=== PATIENT | female | born 1995 | race African-American/Black ===

== ENCOUNTER 2019-04-30 04:01 | Emergency (ER) | payer SELFPAY ==
[2019-04-30 04:42] VITALS: BP 110/69; PULSE 88; TEMP 98.2; BMI 32.3
--- NOTE | 2019-04-30 05:08 | PDOC ---
History of Present Illness - General History Source: Patient Exam Limitations: No Limitations <Genie Mejia - Last Filed: 04/30/19 05:29> <Leo Hall - Last Filed: 04/30/19 05:34> - General Chief Complaint: Abscess Boil Stated Complaint: ABCESS Time Seen by Provider: 04/30/19 05:07 Past History - Past Medical History Asthma: Yes COPD: No Psychiatric Problems: Yes (Anxiety) - Immunization History Immunization Up to Date: Yes - Suicide/Smoking/Psychosocial Hx Smoking History: Never smoked Have you smoked in the past 12 months: No Information on smoking cessation initiated: No Hx Alcohol Use: No Drug/Substance Use Hx: No Substance Use Type: None <Genie Mejia - Last Filed: 04/30/19 05:29> <Leo Hall - Last Filed: 04/30/19 05:34> - Past Medical History Allergies/Adverse Reactions: Allergies Allergy/AdvReac Type Severity Reaction Status Date / Time shellfish derived Allergy Verified 04/30/19 04:11 Home Medications: Ambulatory Orders Clindamycin [Cleocin -] 300 mg PO BID #14 capsule MDD 2 tab 04/30/19 Pnv No.95/Ferrous Fum/Folic AC [ Vitamin Tablet] 1 tab PO DAILY Sertraline HCl [Zoloft -] 50 mg PO DAILY 04/30/19 *Physical Exam - Vital Signs Last Vital Signs Temp Pulse Resp BP Pulse Ox 98.2 F 88 18 110/69 99 04/30/19 04:11 04/30/19 04:11 04/30/19 04:11 04/30/19 04:11 04/30/19 04:11 <Genie Mejia - Last Filed: 04/30/19 05:29> - Vital Signs Last Vital Signs Temp Pulse Resp BP Pulse Ox 98.2 F 88 18 110/69 99 04/30/19 04:11 04/30/19 04:11 04/30/19 04:11 04/30/19 04:11 04/30/19 04:11 <Leo Hall - Last Filed: 04/30/19 05:34> ED Treatment Course - ADDITIONAL ORDERS Additional order review: Laboratory Results 04/30/19 05:24 POC Glucometer 89 04/30/19 05:24 POC Glucometer 89 <Leo Hall - Last Filed: 04/30/19 05:34> *DC/Admit/Observation/Transfer - Discharge Dispostion Decision to Admit order: No <Genie Mejia - Last Filed: 04/30/19 05:29> <Leo Hall - Last Filed: 04/30/19 05:34> Diagnosis at time of Disposition: Hidradenitis suppurativa, Abscess - Discharge Dispostion Disposition: HOME Condition at time of disposition: Good - Prescriptions Prescriptions: Clindamycin [Cleocin -] 300 mg PO BID #14 capsule MDD 2 tab - Referrals Referrals: [facility] [place] [Provider Group] Blake Armenat MD [Staff Physician] - - Patient Instructions Printed Discharge Instructions: Hidradenitis Suppurativa, DI for Skin Abscess Additional Instructions: Please return to the emergency department with any new or worsening symptoms or concerns. Please follow up with your primary care physician within 72 hours. PLease take Clindamycin 300 mg twice per day. Please follow up with dermatology and general surgery within 72 hours.
[2019-04-30] MEDS ORDERED: ACETAMINOPHEN 325 MG TABLET (FP) PO ONE (05:35)
[2019-04-30] MEDS ORDERED: CLINDAMYCIN HCL 150 MG CAPSULE (FP) PO ONE (05:35)
--- NOTE | 2019-04-30 05:45 | PDOC ---
Attending Attestation - Resident Resident Name: JackieGenie - ED Attending Attestation I have performed the following: I have examined & evaluated the patient, The case was reviewed & discussed with the resident, I agree w/resident's findings & plan - HPI HPI: 04/30/19 05:43 23 yo female with pain and swelling to the right axilla - Physicial Exam PE: 04/30/19 05:43 agree with resident exam - Medical Decision Making 04/30/19 05:44 23-year-old female with swelling to the right axilla Exam consistent with right axillary abscess Patient has refused multiple times to undergo incision and drainage She will be given clindamycin with prompt outpatient surgical follow-up Of note patient is currently 7 months and has been cleared by labor and delivery
[2019-04-30] MEDS ORDERED: ACETAMINOPHEN 325 MG TABLET (FP) ONE (06:10)
[2019-04-30] MEDS ORDERED: CLINDAMYCIN HCL 150 MG CAPSULE (FP) ONE (06:10)
== END 2019-04-30 06:19 | disposition home or self-care (01) ==
LOC: JER 04:01
DX: L02.411 Cutaneous abscess of right axilla (principal)
CPT/HCPCS: 82962; 99281-25